=== PATIENT | male | born 1945 | race Caucasian/White ===

== ENCOUNTER 2017-04-29 10:50 | Outpatient (CLI) | payer MEDICARE, OTHER ==
[~2017-04-29] VITALS: Ht 172.7 cm; Wt 95.9 kg
--- NOTE | ~2017-04-29 | HEMODYNAMI ---
PATIENT:HEMANT THOMPSON JR MEDICAL RECORD: [id number] : 41 LOCATION:D.CAT ADMISSION DATE: 04/29/17 Generatedon:04/29/201713:39 Patient name: HEMANT THOMPSON Patient #: [id number] SSN: [id number] B: 1945 Date of study: 04/29/2017 Page: Of Hemodynamic Procedure Report Patient Data Patient Demographics Procedure consent was obtained First Name: HEMANT Gender: Male Last Name: DONNA Suffix: [facility] Initial: B : 1945 Patient #: [id number] Age: 71 year(s) Race: Unknown Additional ID: [id number] Contact details Address: [address] [place] [address] ROAD State: [place] City: [facility] [place] Zip code: [address] Admission Admission Data Admission Date: 04/29/2017 Admission Time: 10:50 Procedure Procedure Types Cath Procedure Diagnostic Procedure LHC LHC w/Coronaries Miscellaneous Procedures Moderate Sedation up to 15 minutes Procedure Description Procedure Date Procedure Date: 04/29/2017 Procedure Start Time: 13:23 Procedure End Time: 13:36 Procedure Staff Name Function Christopher Pierre RT Monitor Chrissy Laureano RT Scrub Bayron Dietrich RN Nurse Asad Rich MD Performing Physician Procedure Data Cath Procedure Fluoroscopy Diagnostic fluoroscopy Total fluoroscopy Time: 1.2 time: 1.2 min min Diagnostic fluoroscopy Total fluoroscopy dose: 154 dose: 154 mGy mGy Contrast Material Contrast Material Type Amount (ml) Isovue 300 47 Entry Location Entry Primary Successful Side Size Upsize Upsize Entry Closure Claire ccessful Closure Location (Fr) 1 (Fr) 2 (Fr) Remarks Device Remarks Radial Right 6 Fr Mechanical artery Short Compression Estimated blood loss: 10 ml Diagnostic catheters Device Type Used For End Catheter Placement DIAGNOSTIC Taconite 110cm 5 Procedure Fr catheter ([id number]) Procedure Complications No complications Procedure Medications Medication Administration Route Dosage Oxygen NC 2 l/min Heparin Flush Bag added to field 2 bags (1000units/500ml NS) 0.9% NaCl I.V. 100 ml/hr Radial Cocktail added to field 1 syringe (Verapomil 2mg/Nitro 400mcg/Heparin 1500units) Radial Cocktail I.A. 1 syringe (Verapomil 2mg/Nitro 400mcg/Heparin 1500units) Fentanyl I.V. 50 mcg Versed I.V. 1 mg Fentanyl I.V. 50 mcg Versed I.V. 1 mg Hemodynamics Rest Heart Rate: 68 (bpm) Pressure Samples Time Site Value (mmHg) Purpose Heart Use Rate(bpm) 13:28 LV 93/4,5 Snapshot 75 13:29 AO 98/65(80) Pullback 73 13:29 LV 102/4,7 Pullback 73 Gradients Valve Time Site 1 Site 2 Mean SEP/DFP Peak To Heart Use (mmHg) (sec/min) Peak Rate (mmHg) (bpm) Aortic 13:29 LV AO 4 14 4 73 102/4,7 98/65(80) Calculations Valve P-P Mean Valve Index Valve Source Name Gradient Area Flow (cm2) Aortic 4 4 4 4 Snapshots Pre Cath Intra NCS Post Cath Vital Signs Time Heart Resp SPO2 etCO2 NIBP (mmHg) Rhythm Pain Sedation Rate (ipm) (%) (mmHg) Status Level (bpm) 13:07:15 56 18 99 0 134/78(125) NSR 0 (11) 10(A) , No pain 13:11:35 67 18 92 0 128/80(106) NSR 0 (11) 10(A) , No pain 13:15:53 68 19 93 0 129/76(105) NSR 0 (11) 10(A) , No pain 13:20:07 72 17 92 40.2 123/75(98) NSR 0 (11) 10(A) , No pain 13:24:23 68 17 97 8.9 122/75(93) NSR 0 (11) 9(A) , No pain 13:28:45 76 19 97 15.6 106/58(78) NSR 0 (11) 9(A) , No pain 13:32:57 74 18 94 9.6 118/70(87) NSR 0 (11) 10(A) , No pain 13:37:11 69 18 97 19.3 118/74(94) NSR 0 (11) 10(A) , No pain Medications Time Medication Route Dose Verified Delivered Reason Notes Effectiveness by by 13:13:05 Oxygen NC 2 l/min Asad Verma Per [facility]ick silverio MD 13:13:34 Heparin Flush added 2 bags Asad Verma Per Bag to [facility] Maverick Dietrich RN physician (1000units/500ml field JACKSON NS) 13:13:47 0.9% NaCl I.V. 100 Asad Verma Per ml/hr [facility] silverio MD 13:13:59 Radial Cocktail added 1 Asad Verma used for (Verapomil to syringe [facility] Ma[facility]ick Dietrich RN procedure 2mg/Nitro field JACKSON 400mcg/Heparin 1500units) 13:22:25 Fentanyl I.V. 50 mcg Asad Verma for sedation [facility] Maverick Dietrich RN, MD 13:22:32 Versed I.V. 1 mg Asad Vrema for sedation [facility] Maverick Dietrich RN, MD 13:28:17 Radial Cocktail I.A. 1 Asad Asad for (Verapomil syringe [facility] Rich vasodilation 2mg/Fabiola JACKSON MD 400mcg/Heparin 1500units) 13:29:03 Fentanyl I.V. 50 mcg Asad Verma for sedation [facility] Maverick Dietrich RN, MD 13:29:06 Versed I.V. 1 mg Asad Verma for sedation [facility] Maverick Dietrich RN, MD Procedure Log Time Note 12:35:06 Bayron Dietrich RN sent for patient. Start room use. 12:47:07 Time tracking: Regular hours 12:47:11 Plan of Care:Hemodynamics will remain stable., Cardiac rhythm will remain stable., Comfort level will be maintained., Respiratory function will remain adequate., Patient/ family verbilizes understanding of procedure., Procedure tolerated without complication., Recovers from procedure without complications.. 12:56:04 Patient received from Pre/Post Procedure Room to [facility] 1 Alert and oriented. Tansferred to table in Supine position. 12:56:05 Warm blankets applied, and antonia hugger turned on for patient comfort. 12:56:06 Correct patient and procedure confirmed by team. 12:56:08 Signed procedure consent form obtained from patient. 12:56:09 ECG and BP/O2 sat monitors applied to patient. 13:06:02 Vital chart was started 13:10:08 Rhythm: sinus rhythm 13:10:09 Full Disclosure recording started 13:10:14 H&P Date Dictated: 04/17/2017 Within 30 days and on chart., H&P Addendum completed by physician on day of procedure. (MUST COMPLETE FOR ALL OUTPATIENTS). 13:10:15 Pre-procedure instructions explained to patient. 13:10:15 Pre-op teaching completed and patient verbalized understanding. 13:10:18 Family in waiting room. 13:10:20 Patient NPO since Midnight. 13:10:22 Is the patient allergic to Iodine/contrast media? No. 13:10:31 Is patient on blood thinner?No 13:10:33 Patient diabetic? No. 13:10:35 Previous problem with sedation/anesthesia? No ? 13:10:36 Snore? Yes 13:10:37 Sleep apnea? Yes 13:10:38 Deviated septum? No 13:10:38 Opens mouth fully? Yes 13:10:39 Sticks out tongue? Yes 13:10:41 Airway obstruction? No ? 13:10:43 Dentures? No ? 13:10:45 Pre procedure: right dorsailis pedis pulse 1+ Palpable, but thready & weak; easily obliterated 13:10:48 Modified David's test Ulnar < 7 seconds 13:10:51 Patient pain scale 0/10 ?. 13:10:56 IV patent on arrival in left forearm with 0.9% NaCl at [facility]. 13:10:58 Lab results completed and on chart. 13:11:30 Right Radial & Right Groin area was prepped with chlora-prep and draped in sterile fashion 13:11:31 Alarms reviewed by R. N. 13:11:31 Sharps counted by scrub and verified by R.N. 13:11:38 Use device set Radial Dx 13:11:42 Tegaderm 4 x 4 (1626W) opened to sterile field. 13:11:43 ACIST Hand Control (04159) opened to sterile field. 13:11:44 ACIST Manifold (79801) opened to sterile field. 13:11:45 ACIST Syringe (82598) opened to sterile field. 13:11:45 Medline Cath Pack ([id number]) opened to sterile field. 13:11:46 Bag Decanter (2002S) opened to sterile field. 13:11:46 SHEATH 6FR Slender ([id number]) opened to sterile field. 13:11:47 DIAGNOSTIC WIRE .035 260cm J wire (618412) opened to sterile field. 13:11:47 MBrace Wrist Support ([id number]) opened to sterile field. 13:13:05 Oxygen 2 l/min NC was administered by Bayron Dietrich RN; Per physician; 13:13:34 Heparin Flush Bag (1000units/500ml NS) 2 bags added to field was administered by Bayron Dietrich RN; Per physician; 13:13:47 0.9% NaCl 100 ml/hr I.V. was administered by Bayron Dietrich RN; Per physician; 13:13:59 Radial Cocktail (Verapomil 2mg/Nitro 400mcg/Heparin 1500units) 1 syringe added to field was administered by Bayron Dietrich RN; used for procedure; 13:15:25 Physician paged 13:21:41 --------ALL STOP TIME OUT------ 13:21:42 Final Timeout: patient, procedure, and site verified with staff and physician. All members of the team are in agreement. 13:22:01 Right Radial & Right Groin site verified by team. 13:22:04 Physical assessment completed. ASA score P 2 - A patient with mild systemic disease as per Asad Rich MD. 13:22:18 Sedation plan: IV Moderate Sedation Medication:Versed, Fentanyl 13:22:25 Fentanyl 50 mcg I.V. was administered by Bayron Dietrich RN; for sedation; 13:22:32 Versed 1 mg I.V. was administered by Bayron Dietrich RN; for sedation; 13:23:16 Procedure started. 13:23:23 Local anesthetic to right radial artery with Lidocaine 2% by Asad Rich MD.INITIAL ACCESS ONLY 13:23:44 Baseline sample Acquired. 13:27:20 A 6 Fr Short sheath was inserted into the Right Radial artery 13:27:33 A DIAGNOSTIC Taconite 110cm 5 Fr catheter (349959) was advanced over the wire and used for Procedure. 13:28:17 Radial Cocktail (Verapomil 2mg/Nitro 400mcg/Heparin 1500units) 1 syringe I.A. was administered by Asad Rich MD; for vasodilation; 13:28:43 LV angiography performed. 13:28:44 LV gram done using RODRIGUEZ 13:28:50 EF : 55 % 13:29:00 LV hemodynamics recorded. 13:29:03 Fentanyl 50 mcg I.V. was administered by Bayron Dietrich RN; for sedation; 13:29:04 Injector settings: Ml/sec: 7, Volume: 15, 13:29:06 Versed 1 mg I.V. was administered by Bayron Dietrich RN; for sedation; 13:29:39 LCA angiography performed. 13:30:33 RCA angiography performed. 13:30:35 Catheter removed. 13:30:38 TR BAND Standard ([id number]) opened to sterile field. 13:31:03 Sheath removed intact; hemostasis achieved with Mechanical Compression to the Right Radial artery. 13:31:07 TR band inflated with 12cc of air. 13:31:08 Procedure ended.(Physican Out) 13:32:01 Fluoroscopy time 01.20 minutes. 13:32:05 Fluoroscopy dose: 154 mGy 13:32:05 Flurop Dose total: 154 13:32:09 Contrast amount:Isovue 300 47ml. 13:32:10 Sharps counted by scrub and verified by R.N. 13:32:14 Insertion/operative site no bleeding no hematoma. 13:32:15 Post Procedure Pulses reassessed and unchanged 13:32:17 Post-procedure physical assessment completed. ASA score P 2 - A patient with mild systemic disease as per Asad Rich MD. 13:32:51 Post procedure rhythm: unchanged. 13:32:54 Estimated blood loss: 10 ml 13:36:05 Post procedure instruction explained to patient.Patient verbalizes understanding. 13:36:06 Patient needs reinforcement of post procedure teaching. 13:36:15 Procedure and supply charges have been captured, reviewed, submitted and are correct. 13:36:35 Procedure Complication : No complications 13:36:38 Vital chart was stopped 13:36:38 See physician's report for complete and final results. 13:36:40 Report given to Pre/Post Procedure Room. 13:36:44 Patient transfered to Pre/Post Procedure Room with Stretcher. 13:36:55 Procedure ended. 13:36:55 Full Disclosure recording stopped 13:37:04 End room use (Document Last) Device Usage Item Name Manufacture Quantity Catalog Hospital Part Current Minima l Lot# / Number Charge Number Stock Stock Serial# Code Tegaderm 4 x 3M 1 [id number] 208102 144662 5 4 (1626W) ACIST Hand Acist 1 98245 567826 321351 264324 5 Control Medical (81676) Systems Inc ACIST Acist 1 28263 215470 036069 343343 5 Manifold Medical (47329) Systems Inc ACIST Acist 1 06380 885388 480859 963193 20 Syringe Medical (77408) Systems Inc Medline Cath Cardinal 1 [id number] 964740 70964 869397 5 Pack Health ([id number]) Bag Decanter Microtek 1 2002S 155519 25188 352573 5 (2001S) Medical Inc. SHEATH 6FR Terumo 1 [id number] 830778 325522 796820 40 Slender ([id number]) DIAGNOSTIC St Sandeep 1 105332 126258 372463 958967 30 WIRE .035 260cm J wire (074452) MBrace Wrist Advanced 1 140-0250-00 109019 24723 566217 5 Support Vascular ([id number]) Dynamics DIAGNOSTIC Terumo 1 40-6729 547698 578243 205811 5 Taconite 110cm 5 Fr catheter (546806) TR BAND Terumo 1 [id number] 613573 105992 758201 40 Standard ([id number]) Signature Audit [place] Stage Time Signature Unsigned Intra-Procedure 04/29/2017 Christopher Pierre 1:39:23 PM RT(R) Signatures Monitor : Christopher Pierre RT Signature : Date : Time : [facility] [address] [place] [address]
[2017-04-29] MEDS ORDERED: K-DUR20 MEQ PO (11:06)
[2017-04-29] MEDS ORDERED: DEXILANT60 MG PO (11:06)
[2017-04-29] MEDS ORDERED: LISINOPRIL-HCTZ1 T11 PO (11:06)
[2017-04-29] MEDS ORDERED: ULTRAM50 MG PO (11:07)
[2017-04-29] MEDS ORDERED: PRAVACHOL40 MG PO (11:07)
[2017-04-29] MEDS ORDERED: VERELAN180 MG PO (11:07)
[2017-04-29] MEDS ORDERED: BAYER CHEWABLE81 MG PO (11:08)
[2017-04-29] MEDS ORDERED: MOBIC7.5 MG PO (11:08)
[2017-04-29 11:15] VITALS: BP 138/76; Ht 172.7 cm; Wt 95.9 kg
[2017-04-29 11:23] LABS: BASOPHILS 0.5 % (0-2); EOSINOPHILS 2.9 % (0-7); HEMATOCRIT 44.4 % (42.0-54.0); HEMOGLOBIN 15.4 g/dL (13.5-17.5); IMMATURE GRANULOCYTES 0.1 % (0-5); MCH 30.9 pg (26.0-34.0); MCHC 34.7 g/dL (31.0-37.0); MCV 89.2 fL (80.0-100.0); MEAN PLATELET VOLUME 10.7 fL (7.4-10.4); MONOCYTES 12.5 % (2-11); PLATELET COUNT 123 10x3/uL (130-400); RBC 4.98 10x6/uL (4.20-6.10); RDW 13.6 % (11.5-14.5); WBC 7.7 10x3/uL (4.8-10.8)
[2017-04-29 11:36] LABS: ANION GAP 11.9 mmol/L (8-16); CARBON DIOXIDE 26.7 mmol/L (21.0-32.0); CREATININE - SERUM 1.1 mg/dL (0.6-1.3); POTASSIUM - SERUM 3.6 mmol/L (3.5-5.1)
--- NOTE | 2017-04-29 14:07 | NUR ---
1405 RESTING WITH EYES CLOSED, LYING FLAT. ROOM AIR WITH NO RESP DISTRESS. NSR RATE 64 WNO C/O CHEST PAIN. PULSES PALP X 4. R WRIST TR BAND C/D/I W NO HEMATOMA OR BLEEDING. BRISK CAP REFILL. FAMILY AT BEDSIDE.
--- NOTE | 2017-04-29 14:25 | NUR ---
HOB ELEVATED. EATING TURKEY SANDWICH AND SIPPING WATER WITH NO NAUSEA.
--- NOTE | 2017-04-29 14:43 | NUR ---
2CC AIR REMOVED FROM R WRIST TR BAND. WILL MONITOR FOR BLEEDING.
--- NOTE | 2017-04-29 14:58 | NUR ---
2CC MORE AIR REMOVED FROM R WRIST TR BAND.
--- NOTE | 2017-04-29 15:13 | NUR ---
PIV REMOVED FROM LEFT FOREARM WITH BANDAID APPLIED. UP TO BEDSIDE TO DRESS WITH ASSIST FROM .
--- NOTE | 2017-04-29 15:26 | NUR ---
TR BAND WEANED COMPLETELY. TEGADERM AND COTTON BALL APPLIED TO R WRIST. BRACE RE-APPLIED. D/C INSTRUCTIONS DISCUSSED WITH PATIENT AND FAMILY AT BEDSIDE. WHEELED OUT VIA WHEELCHAIR BY CATH TEAM.
--- NOTE | 2017-05-06 12:19 | OP ---
PATIENT NAME: HEMANT THOMPSON JR MEDICAL RECORD: [id number] :41 LOCATION:D.CAT ADMISSION DATE: SURGEON: ZAC STANLEY MD DATE OF OPERATION: 04/29/2017 PROCEDURE: Left heart catheterization, selective coronary angiography, right radial approach. CATHETERS: Marquez catheter, radial sheath. The procedure was well tolerated. The patient returned to the pruitt. Sheath was removed. TR band was placed. FINDINGS: Left ventriculography 30-degree RODRIGUEZ view: Normal wall motion and normal systolic function. CORONARY ANATOMY: 1. Left main: Left main is free of disease. 2. LAD: Free of disease in the diagonal system. 3. Circumflex: Free of disease in the marginal system. 4. Right coronary artery: Dominant artery, gives rise to PDA, free of disease. IMPRESSION: Normal systolic function. Normal coronary anatomy. TRANSINT:[id number] Voice Confirmation ID: [id number] DOCUMENT ID: [id number] ZAC STANLEY MD at 1219 CC: [id number] DICTATION DATE: 04/29/17 1339 SEPARATOR INSERTER: 04/29/17 1534 DEP CLI 04/29/17 [place] [id number] [place] [address]
== END 2017-04-29 15:28 | disposition home or self-care (01) ==
LOC: D.CATH 10:50
PROVIDERS: Internal Medicine Interventional Cardiology
DX: R07.9 Chest pain, unspecified (principal); Z01.812 Encounter for preprocedural laboratory examination

== ENCOUNTER → 2019-05-23 08:29 | Outpatient (CLI) | payer MEDICARE, OTHER ==
[2017-04-29 11:15] VITALS: BMI 32.1
--- NOTE | ~2019-05-23 | EC ---
PATIENT:HEMANT THOMPSON JR DATE OF SERVICE: 05/23/19 SEX: M MEDICAL RECORD: [id number] DATE OF : 41 [facility] AGE OF PATIENT: 73 ADMISSION DATE: 05/23/19 REFERRING PHYSICIAN: INTERPRETING PHYSICIAN: ZAC STANLEY MD ECHOCARDIOGRAM REPORT ECHO CHARGES 4 ECHO COMPLETE Date: 05/23/19 CLINICAL DIAGNOSIS: ZAMBRANO H/O HTN ECHOCARDIOGRAPHIC MEASUREMENTS (adult normal given) AC root (d.<3.7cm) 3.9 cm LV Septum d (<1.2 cm> 1.3 cm Valve Excursion 1.9 cm LV Septum (systole) 1.8 cm Left Atria (s.<4.0cm> 3.3 cm LVPW d(<1.2cm) 0.9 cm RV (d.<2.3cm) 3.1 cm LVPW (sytole) 1.7 cm LV diastole(<5.6CM) 5.7 cm MV E-F(>70mm/sec) cm LV systole 3.4 cm LVOT Diameter 2.2 cm MV exc.(>10mm) cm Est.ejection fraction (50-75%) % DOPPLER: LVIT cm/sec A 87.0 cm/sec E 37.0 cm/sec LA cm/sec RVSP 23.0 mmHg LVOT 96.0 cm/sec AOP1/2T m/s Asc. Ao 143 cm/sec RVOT 57.0 cm/sec RA cm/sec PA 72.0 cm/sec AV Gradient Peak 8.2 mmHg AV Mean 4.8 mmHg AV Area 2.6 cm MV Gradient Peak 6.3 mmHg MV Mean 1.5 mmHg MV Area cm COMMENTS: OP - HC House Director: 1 ARCHIE CABRERA Manager Grant: 3 Dr. Rich TAPE# PACS Pericardial Effusion N DATE OF SERVICE: Adequate 2D, Color Flow, Spectral Doppler, and M-Mode Borderline LVH. LV internal dimension is normal. LV shows a mild global hypo with LV function mildly reduced. Estimated EF 40% to 45%. Aortic valve sclerosis without stenosis by Doppler interrogation. Left atrium is normal at 3.3 cm. Mitral valve shows no prolapse. Trace MR. Right-sided chambers are grossly normal. Mild TR. ECHOCARDIOGRAM REPORT [id number] HEMANT THOMPSON JR TRANSINT:[id number] Voice Confirmation ID: [id number] DOCUMENT ID: [id number] ZAC STANLEY MD CC: [id number] DICTATION DATE: 05/25/19 1325 ASSEMBLER PING PONG TABLE: 05/25/192153 DEP CLI 05/23/19 [place] [id number]
[~2019-05-23 08:29] MED LIST: BAYER CHEWABLE81 MG PO; DEXILANT60 MG PO; K-DUR20 MEQ PO; LISINOPRIL-HCTZ1 T11 PO; MOBIC7.5 MG PO; PRAVACHOL40 MG PO; ULTRAM50 MG PO; VERELAN180 MG PO
== END | disposition home or self-care (01) ==
LOC: D.HCCECHO 08:29
PROVIDERS: ATTEND Internal Medicine Interventional Cardiology
DX: I10 Essential (primary) hypertension (principal)